=== PATIENT | male | born 1955 | race Caucasian/White ===

== ENCOUNTER 2017-01-20 17:30 | Emergency (ER) | payer MEDICARE ==
[~2017-01-20] VITALS: Ht 172.7 cm; Wt 84.0 kg
[2017-01-20 17:33] VITALS: Ht 172.7 cm; Wt 84.0 kg
--- NOTE | 2017-01-20 18:13 | ERPDOC ---
Departure Disposition Decision Date: Jan 20, 2017 Disposition Decision Time: 20:08 Disposition: 01 DISCHARGED HOME, SELF-CARE Impression Impression Impression: Primary Impression: Gastroenteritis Severity: Moderate Condition: Stable Seen By: Physician only Patient Instructions: Gastroenteritis (ED) Problems/Meds/Labs Reviewed?: Yes Medications reviewed and manag: Yes Additional Instructions: Encourage fluids to stay ahead of the diarrhea if you have it You should get a call from one of the dialysis centers in [place] tomorrow for a chair time, I highly recommend; you need dialysis before you leave town, it is critical Follow up care ordered?: Yes Mental Status: Alert, Oriented Critical Care Note Total Time (mins): 38 Critical Care Spent: [id number] care of pt, Reviewing test results, Discuss the case w/staff, Documenting the MR, Discussion w/ family/DPOA During this visit the pt was: At Risk of Deterioration (patient dialysis patient with hypotension requiring acute intervention and careful monitoring of status to prevent deterioration) HPI - Abdominal Pain General Chief Complaint: Nausea,Vomiting,Diarrhea Stated Complaint: VOMITING/CRAMPING/ABD PAIN/DIALYSIS PATIENT Time Seen by Provider: 18:13 Source: patient, family History/Exam Limitations: no limitations HPI - Abdominal Pain Initial Comments Patient is a 61-year-old male dialysis patient. Patient is currently visiting from [place], however he has made arrangements for dialysis on Monday/Monday this week here in [place]. Patient did go to his dialysis on Monday, however afterwards patient developed crampy abdominal pain nausea vomiting diarrhea. Patient has had diarrhea for the last 48 hours, he felt so terrible today that he did not go to his dialysis appointment. Patient brought into the ER [facility] for evaluation on arrival patient's blood pressure 88/40's. Allergies: Coded Allergies: No Known Allergies (Unverified , 01/20/17) Past History Past Medical History Metabolic: hypothyroidism GI: GERD Male: renal failure Psychological: depression Surgical History General: other (A-V shunt) Social History Smoking Status: Former smoker Substance Use Type: does not use Alcohol Intake: none Review of Systems Constitutional Constitutional: appetite decrease, weakness, DENIES: chills, dizziness, fever Eyes Vision: DENIES: double vision, loss of visual beavers ENMT Sinuses: DENIES: congestion, rhinorrhea Mouth/Throat: DENIES: scratchy throat, sore throat Cardiovascular Cardiac: DENIES: chest pain, dyspnea on exertion GI Upper Abdomen: nausea, vomiting, DENIES: pain Lower Abdomen: diarrhea, DENIES: constipation, pain Musculoskeletal General: DENIES: cramps, pain, weakness Integumentary Skin: DENIES: color change, itching, rash Endocrine Endocrine: DENIES: heat/cold intolerance Hematologic/Lymphatic Hematologic/Lymphatic: DENIES: anemia Physical Exam General General Nourishment: well nourished, well developed General Body Habitus: well groomed Vitals and Pain Weight: Kilograms: Height (feet): Height (inches): Triage Pain Scale: RN VS reviewed by Provider: Yes Eyes (brief) Eyes Brief: found: EOMI ENMT (brief) ENMT Brief: FOUND: mucosa moist, normal dentition, NOT FOUND: nasal erythema, pharnyx erythema, tonsillar deviation Neck (brief) Neck: NOT FOUND: adenopathy, spasm, tenderness Respiratory (brief) Respiratory: FOUND: clear all beavers, equal bilaterally, NOT FOUND: rales, wheezes Cardiovascular (brief) Cardiac: FOUND: regular rate, regular rhythm Capillary Refill: <2 sec Lymphatic (brief) Lymphatic Brief: NOT FOUND: adenopathy Musculoskeletal (brief) Musculoskeletal Brief: NOT FOUND: spasm, tenderness Integumentary (brief) Integumentary Brief: FOUND: dry, pink, warm, NOT FOUND: rash Neurologic (brief) Neurological Brief: FOUND: CN w/o gross def to obs, motor-no gross deficits, sensory-no gross deficits Psychiatric (brief) Psychiatric Brief: FOUND: alert, oriented Differential Diagnoses Considering: Achalasia, Appendicitis, Dehydration, Diverticulitis, Food Poisoning, Gastroenteritis, Gastroparesis, Giardiasis, Hyponatremia, Hypokalemia , Hypoglycemia, Ingestion/Overdose, Pancreatitis, Pneumonia, Rotavirus, UTI, Vertigo, Sigmoid Volvulus, Cecal Volvulus Progress Results/Orders Orders Procedure Category Date Status Time Iv Lock (Ed Only) EDM 01/20/17 Transmitted 18:13 Nothing By Mouth (Ed EDM 01/20/17 Transmitted Only) 18:13 Cbc W/Auto LAB 01/20/17 Complete Diff-Reflex Manual 18:13 Cmp - Comprehensive LAB 01/20/17 Complete Metabolic 18:13 Lipase LAB 01/20/17 Complete 18:13 EKG EKG 01/20/17 Taken 18:13 Troponin I W LAB 01/20/17 Complete Hemolysis Index 18:13 Normal Saline (Normal PHA 01/20/17 Complete Saline Iv) 18:15 Lactate - Lactic Acid LAB 01/20/17 Complete 18:20 Procalcitonin LAB 01/20/17 Complete 18:20 Blood Culture CHARLENE 01/20/17 Complete 18:20 Normal Saline (Normal PHA 01/20/17 Complete Saline Iv) 20:15 Lab Results Laboratory Tests Test 01/20/17 18:17 01/20/17 18:32 White Blood Count 6.9T/MM3 Red Blood Count 4.25M/MM3 Hemoglobin 13.2GM/DL Hematocrit 39.2% Mean Corpuscular Volume 92.2UM3 Mean Corpuscular Hemoglobin 31.1UUG Mean Corpuscular Hemoglobin Concent 33.7GM/DL RDW Standard Deviation 41.2FL Platelet Count 184T/MM3 Mean Platelet Volume 10.1UM3 Immature Granulocyte % (Auto) 0.3% Neutrophils (%) (Auto) 56.8% Lymphocytes (%) (Auto) 22.5% Monocytes (%) (Auto) 18.8% Eosinophils (%) (Auto) 1.5% Basophils (%) (Auto) 0.1% Absolute Immature Granulocyte (auto 0.02T/MM3 Absolute Neutrophils (auto) 3.9T/MM3 Absolute Lymphocytes (auto) 1.5T/MM3 Absolute Monocytes (auto) 1.3T/MM3 Absolute Eosinophils (auto) 0.1T/MM3 Absolute Basophils (auto) 0.0T/MM3 Turbidity < 20 Sodium Level 136MEQ/L Potassium Level 4.6MEQ/L Chloride Level 97MEQ/L Carbon Dioxide Level 18MEQ/L Anion Gap 21MEQ/L Blood Urea Nitrogen 62.0MG/DL Creatinine 13.5MG/DL Glomerular Filtration Rate Calc 4 BUN/Creatinine Ratio 5RATIO Glucose Level 133MG/DL Calculated Osmolality 282MOSM/KG Calcium Level 9.1MG/DL Total Bilirubin 0.80MG/DL Icterus Index < 2 Aspartate Amino Transf (AST/SGOT) 15U/L Alanine Aminotransferase (ALT/SGPT) 27U/L Alkaline Phosphatase 85U/L Troponin I < 0.012ng/ml Total Protein 8.5G/DL Albumin 4.3G/DL Globulin 4.2G/DL Albumin/Globulin Ratio 1.0RATIO Lipase 93U/L Chemistry Specimen Hemolysis < 15 Plasma Lactate 1.3MMOL/L Procalcitonin 5.97NG/ML Medications Current ED Medications Sodium Chloride 1,000 ml @ 999 mls/hr Q1H1M ONCE IV Last administered on t 18:27; Start 01/20/17 at 18:15; Stop 01/20/17 at 19:15; Status DC Sodium Chloride (Normal Saline IV) 1,000 ml @ 999 mls/hr Q1H1M ONCE IV ; Start 01/20/17 at 20:15; Stop 01/20/17 at 21:15; Status DC CALLI LAMAR MD Jan 20, 2017 18:13
[2017-01-20] MEDS ORDERED: NORMAL SALINE 1,000 ML IV ONE ×2 (18:15→20:15)
[2017-01-20 18:24] LABS: BASOPHILS % (AUTO) 0.1 % (0-2); EOSINOPHILS # (AUTO) 0.1 T/MM3 (0-0.5); EOSINOPHILS % (AUTO) 1.5 % (0-4); HCT - HEMATOCRIT 39.2 % (41-53); HGB - HEMOGLOBIN 13.2 GM/DL (13.5-17.5); IMMATURE GRANULOCYTE # (AUTO) 0.02 T/MM3 (0.00-0.03); IMMATURE GRANULOCYTE % (AUTO) 0.3 % (0.0-0.5); LYMPHOCYTES # (AUTO) 1.5 T/MM3 (1-4.8); LYMPHOCYTES % (AUTO) 22.5 % (23-45); MEAN CORPUSCULAR HGB 31.1 UUG (26-34); MEAN CORPUSCULAR HGB CONC(MCHC 33.7 GM/DL (31-37); MEAN CORPUSCULAR VOLUME 92.2 UM3 (80-100); MEAN PLATELET VOLUME 10.1 UM3 (9.4-12.4); MONOCYTES # (AUTO) 1.3 T/MM3 (0-0.8); MONOCYTES % (AUTO) 18.8 % (0-9.0); NEUTROPHILS #(AUTO)-ABSOLUTE 3.9 T/MM3 (1.8-7.7); NEUTROPHILS % (AUTO) 56.8 % (33-66); RED BLOOD COUNT 4.25 M/MM3 (4.50-5.90); WBC - WHITE BLOOD COUNT 6.9 T/MM3 (4.5-11.0)
[2017-01-20 18:36] LABS: ALBUMIN 4.3 G/DL (3.5-5.0); ALKALINE PHOSPHATASE 85 U/L (38-126); ALT (SGPT) 27 U/L (21-72); ANION GAP 21 MEQ/L (5-15); AST (SGOT) 15 U/L (17-59); BUN/CREATININE RATIO 5 RATIO (6-26); CALCIUM 9.1 MG/DL (8.4-10.2); CHLORIDE 97 MEQ/L (98-107); CO2 - CARBON DIOXIDE 18 MEQ/L (22-30); CREATININE 13.5 MG/DL (0.8-1.5); GLOMERULAR FILTRATION RATE 4; GLUCOSE 133 MG/DL (75-110); LIPASE 93 U/L (23-300); POTASSIUM 4.6 MEQ/L (3.6-5); SODIUM 136 MEQ/L (134-144); TOTAL PROTEIN 8.5 G/DL (6.3-8.2)
[2017-01-20] MEDS ORDERED: CARV6.252 PO (19:05)
[2017-01-20] MEDS ORDERED: PREN1TAB73 PO (19:05)
[2017-01-20] MEDS ORDERED: CARV12.52 PO (19:05)
[2017-01-20] MEDS ORDERED: CALC667T5 PO (19:05)
[2017-01-20] MEDS ORDERED: ASPI-917 PO (19:07)
[2017-01-20] MEDS ORDERED: TAMS0.4C47 PO (19:07)
[2017-01-20] MEDS ORDERED: LOSA50TA52 PO (19:07)
[2017-01-20] MEDS ORDERED: DOCU-168 PO (19:09)
[2017-01-20] MEDS ORDERED: ACET325T51 PO (19:09)
[2017-01-20] MEDS ORDERED: ATOR40TA64 PO (19:09)
[2017-01-20] MEDS ORDERED: LEVO50TA11 PO (19:09)
[2017-01-20] MEDS ORDERED: DIPH25TA23 PO (19:11)
[2017-01-20] MEDS ORDERED: LIDO30CR23 TP (19:11)
--- NOTE | 2017-01-20 20:00 | NUR ---
STATUS PT RESTING IN BED. STATES MILD CRAMPING IN FEET. DENIES NAUSEA. DENIES NEEDS AT THIS TIME. BP IMPROVING - CURRENT BP 104/66. DENIES NEEDS AT THIS TIME.
[2017-01-20 21:10] VITALS: BP 112/67; PULSE 73; RESP 14; TEMP 97.7; O2SAT 96
--- NOTE | 2017-01-20 21:10 | NUR ---
DEPART PT GIVEN DI FOR GASTROENTERITIS AND F/U. PT AND SPOUSE VERBALIZE UNDERSTANDING OF DI. QUESTIONS ASKED/ANSWERED - DENIES FURTHER QUESTIONS/NEEDS AT THIS TIME. IV SITE REMOVED. PERSONAL BELONGINGS GATHERED. PT DENIES NAUSEA AT THIS TIME. REPORTS ABDOMINAL PAIN/CRAMPING 0-1/10 AT THIS TIME. PT AMBULATED/ESCORTED TO ED EXIT - GAIT STABLE, NO SIGN OF DISTRESS. AND DAUGHTER AT SIDE.
== END 2017-01-20 21:10 | disposition home or self-care (01) ==
LOC: ED 17:30
DX: K52.9 Noninfective gastroenteritis and colitis, unspecified (principal)
CPT/HCPCS: 36415; 80053; 83605; 83690; 84145; 84484; 85025; 87040; 93005; 99284; J7030